=== PATIENT | male | born 2000 | race Caucasian/White ===

== ENCOUNTER → 2025-02-23 12:18 | Outpatient (REF) | payer BC, SELFPAY | LOC: HWRAD 12:18 | PROVIDERS: ATTENDING PHYSICIAN Chiropractor; FAMILY PHYSICIAN Nurse Practitioner Adult Health | DX: M54.2 Cervicalgia (principal); M54.6 Pain in thoracic spine; M53.2X7 Spinal instabilities, lumbosacral region | CPT/HCPCS: 72050; 72072; 72110 ==